=== PATIENT | male | born 1955 | race African-American/Black ===

== ENCOUNTER 2018-03-27 15:45 | Emergency (ER) | payer MEDICAID ==
[~2018-03-27] VITALS: Ht 180.3 cm; Wt 73.0 kg
[~2018-03-27 15:45] MED LIST: ASPIRIN; BP MED; NORCO
[2018-03-27 21:31] VITALS: BP 159/90
== END 2018-03-27 21:33 | disposition home or self-care (01) ==
LOC: ER 17:00
DX: S40.011A Contusion of right shoulder, initial encounter (principal); S16.1XXA Strain of muscle, fascia and tendon at neck level, initial encounter; I11.9 Hypertensive heart disease without heart failure; M47.892 Other spondylosis, cervical region; F12.10 Cannabis abuse, uncomplicated; F17.200 Nicotine dependence, unspecified, uncomplicated; Z85.9 Personal history of malignant neoplasm, unspecified; Z86.73 Personal history of transient ischemic attack (TIA), and cerebral infarction without residual deficits; V43.92XA Unspecified car occupant injured in collision with other type car in traffic accident, initial encounter; Y93.89 Activity, other specified; Y92.488 Other paved roadways as the place of occurrence of the external cause
CPT/HCPCS: 72040; 72070; 72110; 73030; 99284

== ENCOUNTER 2021-05-18 17:27 | Emergency (ER) | payer BC, MEDICAID ==
[~2021-05-18] VITALS: Ht 180.3 cm; Wt 64.0 kg
[2021-05-18] MEDS ORDERED: SODIUM CHLORIDE 0.9% 1,000 ML IV ONE (22:45)
[2021-05-18 22:57] LABS: BASOPHILS % 0.3 % (0.0-2.0); HEMATOCRIT. 38.6 % (42.0-52.0); LYMPHOCYTES % 17.8 % (20.0-50.0); MEAN CORPUSCULAR HEMOGLOBIN 30.2 pg (28.0-32.0); MEAN CORPUSCULAR VOLUME 89.6 fL (80.0-94.0); MEAN PLATELET VOLUME 8.8 fl (7.4-10.4); MONOCYTES % 4.4 % (2.0-8.0); NEUTROPHILS % 77.5 % (40.0-76.0); PLATELET 137 x1000/uL (130-400); RED CELL DISTRIBUTION WIDTH 15.2 % (11.6-14.6)
[2021-05-18 23:02] LABS: CHLORIDE 104 mEq/L (98-107)
[2021-05-18 23:05] LABS: CLARITY URINE CLEAR (CLEAR); COLOR URINE YELLOW (YELLOW); KETONES URINE NEGATIVE (NEGATIVE); LEUKOCYTE ESTERASE URINE NEGATIVE (NEGATIVE); NITRITE URINE NEGATIVE (NEGATIVE); OCCULT BLOOD URINE NEGATIVE (NEGATIVE); PROTEIN URINE NEGATIVE (NEGATIVE); SPECIFIC GRAVITY URINE 1.019 (1.005-1.030)
[2021-05-18 23:07] LABS: PROTHROMBIN TIME 10.3 sec (9.6-11.0)
[2021-05-18 23:11] LABS: CREATINE KINASE 96 IU/L (39-308)
[2021-05-19 02:17] VITALS: BP 123/81
[2021-05-19] MEDS ORDERED: IOHEXOL-300 100 ML BOTTLE ONE (06:41)
== END 2021-05-19 02:46 | disposition home or self-care (01) ==
LOC: ER 17:27
DX: K94.01 Colostomy hemorrhage (principal); C18.9 Malignant neoplasm of colon, unspecified; M79.18 Myalgia, other site; G89.11 Acute pain due to trauma; R91.8 Other nonspecific abnormal finding of lung field; I10 Essential (primary) hypertension; D64.9 Anemia, unspecified; Z90.5 Acquired absence of kidney; Z87.891 Personal history of nicotine dependence; F12.90 Cannabis use, unspecified, uncomplicated; Z18.10 Retained metal fragments, unspecified
CPT/HCPCS: 36415; 71045; 74177; 80053; 81003; 82550; 83690; 85025; 85610; 99285; J7030; Q9967